=== PATIENT | female | born 1940 | race Caucasian/White ===

== ENCOUNTER → 2025-03-09 10:51 | Outpatient (CLI) | payer MEDICARE, OTHER, SELFPAY ==
--- NOTE | 2025-03-09 17:20 | ST.SWALLOW ---
Visit Care Team Role Provider Type Willam Jolly DO Attending Provider Non-Staff Primary Care Provider Referring Provider Specialty: Family Practice Address: [address] [place] [address], [place], [address] Email: Modified Barium Swallow Study PHP ENGINEER Modified Barium Swallow Study Start: 03/09/25 16:17 Freq: Status: Active Protocol: Document 03/09/25 16:18 LNK (Rec: 03/09/25 17:19 LNK Desktop) Modified Barium Swallow Study Total Time Visit Start Time 11:00 Visit Stop Time 11:45 Total Visit Minutes [address] Rik DO Reason for Referral dysphagia Setting Setting Outpatient Care Patient Information Identification Type Name,Date of Patient History Pt was seen for a Modified Barium Swallow Study at the referral of Dr. Jolly. Pt was accompanied by her caregiver. 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 However, understands everything said to her and is able to communicate via writing. She is able to write and she brought in a written history and her swallow complaints. She stated she has excessive saliva at night with drooling. She also stated she will choke on her saliva and will have difficulty swallowing pills. She remarked that if she slows down eating and concentrates , her swallowing is better. Pt said she had speech therapy at [facility] for several months but her therapist moved. The pt's caregiver confirmed the pt's report and added that the pt is smart, understands everything and, lives independently. Pt and caregiver reported that the pt currently eats soft foods and soups. She stated she sometimes has difficulty taking pills. She denied a GERD diagnosis and head/neck injury/surgery. Subjective Pt was seated in the flouroscopy chair with directions Observations and procedures explained for her. She indicated she understood and agreed to proceed. Patient Positioning Position View Lat-A/P Imaging Lateral View Textures Administered Trials Presented Thin Liquid via Spoon (IDDSI 0),Thin Liquid via Cup ( IDDSI 0),Extremely Thick Liquid via Spoon (IDDSI 4), Regular (IDDSI 7) Barium Tablet Yes The IDDSI Framework Protocol: IDDSI.1 Oral Impairment Source: The Modified Barium Swallow Impairment Profile (MBSImP??) Lip Closure No labial escape Tongue Control Cohesive bolus between tongue to palatal seal During Bolus Hold Bolus Preparation/ Slow prolonged chewing/mashing with complete re- Mastication collection Bolus Transport/ Repetitive/disorganized tongue motion Lingual Motion Oral Residue Trace residue lining oral structures Location Tongue Initiation of Bolus head at posterior laryngeal surface of epiglottis Pharyngeal Swallow Additional Oral *OME indicated mild weakness of left facial, labial Impairment and lingual muscles. Reduced lingual ROM, speed of Observations movement and accuracy to the left was observed. Pt indicated that her chewing is hard because her tongue isn't coordinated. *Dentition natural and in good hygiene *Mastication observed with disorganized chew pattern. *Adequate bolus formation and control. AP transition is slow with a rocking, uncoordinated motion *Velopharyngeal closure was WNL. Oral phase of swallow mildly impaired -Lingual coordination moderately impaired Pharyngeal Impairment Source: The Modified Barium Swallow Impairment Profile (MBSImP??) Soft Palate No bolus between soft palate & pharyngeal wall Elevation Laryngeal Elevation Comp.sup.move.thyroid cart.w/comp.approx.arytenoids to epiglot petiole Anterior Hyoid No anterior movement Excursion Epiglottic Movement Complete inversion Laryngeal Vestibular Complete; no air/contrast in laryngeal vestibule Closure Pharyngeal Stripping Present - diminished Wave Pharyngoesophageal Complete distention & complete duration; no obstruction Segment Opening of flow Tongue Base Narrow column of contrast/air betwn tongue base & post. Retraction pharyngeal wall Pharyngeal Residue Collection of residue within/on pharyngeal structures Location Valleculae Additional *Laryngeal elevation adequate with reduced hyoid Pharyngeal movement Impairment *Epiglottic inversion were judged to be adequate. Observations *Tongue base retraction was reduced resulting in trace residue. *Pharyngeal stripping wave and cricopharyngeal opening appeared adequate and did not appear to impede bolus flow. *Post-swallow residue was primarily at the base of tongue and vallecula Pt did sensate to residue and independently cleared with multiple dry swallows. *No laryngeal penetration or aspiration was observed. *Pharyngeal phase WFL for pt's age. Pt has self limited her food to soft foods and soups A/P View The IDDSI Framework Protocol: IDDSI.1 A/P View Observations Pharyngeal Complete Contraction Esophageal Clearance Complete clearance; esophageal coating Upright Position Vocal Fold Function Good Esophageal Function WFL Additional A-P Thin barium and calibrated barium tablet provided for Observations AP trials Clinical Impressions Dysphagia Type WNL Findings The pt presented with swallowing across all three phases to be WFL. Pt's lingual control is reduced secondary to weakened left side, Pt has adapted and made modifications to her diet appropriately. The above results and recommendations of the MBSS were described to the pt while observing still pictures taken during the MBSS. Pt expressed appreciation and indicated she understood. All pt questions were addressed. Pt's inability to afflictively communicate was discussed with her and her caregiver. pt had received speech therapy, but remains unable to communicate beyond writing. The use of an alternative and augmentative communication (AAC) device system was discussed with the pt. She was not aware of these systems. Most are easily attainable affordable and very effective in providing a way for pts to communicate verbally. It is strongly recommended that pt be referred to [facility] for Speech/Communication therapy utilizing AAC. Pt expressed a strong interest in pursuing AAC therapy with at [facility]. Rehabilitation Excellent Potential Patient Appropriate Yes: Communication therapy for Therapy Recommendations Treatment Plan Therapy Outpatient Speech Therapy Recommendations
== END ==
PROVIDERS: PCP Family Medicine; Referring Provider Family Medicine; Visit Provider Family Medicine
DX: R13.10 Dysphagia, unspecified (principal)
CPT/HCPCS: 74230; 92611